=== PATIENT | male | born 1995 | race Caucasian/White ===

== ENCOUNTER → 2016-07-21 | Outpatient (CLI) | payer OTHER ==
--- NOTE | 2016-07-21 15:47 | MR ---
EXAMINATION TYPE: MR knee RT wo con DATE OF EXAM: 07/21/2016 COMPARISON: NONE HISTORY: Rt. knee pain TECHNIQUE: Multiplanar, multisequence imaging of the right knee is performed without IV contrast. FINDINGS: MEDIAL MENISCUS: Intrasubstance signal within the posterior horn and body medial meniscus suspicious for a subtle tear. LATERAL MENISCUS: Anterior and posterior horns are intact without tear. CRUCIATE LIGAMENTS: The anterior and posterior cruciate ligaments are intact and unremarkable. COLLATERAL LIGAMENTS: The medial collateral ligament and lateral collateral ligament complex are inta ct and unremarkable. EXTENSOR MECHANISM: Visualized quadriceps and patellar tendons are intact. EFFUSION: No significant suprapatellar joint effusion. POPLITEAL CYST: No popliteal/mejia cyst. TRICOMPARTMENT SPACES: Joint spaces are preserved and cartilage is maintained. BONE MARROW SIGNAL: No focal abnormal marrow signal is appreciated. IMPRESSION: Findings are suspicious for subtle tear posterior horn and body medial meniscus.
== END | disposition home or self-care (01) ==
LOC: RADMRIMAIN 07:11
PROVIDERS: ATTEND Physician Assistant Medical
DX: M23.91 Unspecified internal derangement of right knee (principal); S83.91XA Sprain of unspecified site of right knee, initial encounter

== ENCOUNTER 2016-09-04 06:58 | Day surgery (SDC) | payer OTHER ==
--- NOTE | 2016-09-03 12:05 | HP ---
CHIEF COMPLAINT: Right knee pain. HISTORY OF PRESENT ILLNESS: The patient is a 21-year-old [employer] employee who presents after injuring his right knee at work on 06/05/2016. He stepped out of a van and twisted his knee. He has had pain, swelling, and giving way every since. He has tried medications and rest, without significant relief. PAST MEDICAL HISTORY: Negative. PAST SURGICAL HISTORY: Significant for premature right knee arthroscopy. CURRENT MEDICATIONS: Ativan He denies drug allergies. FAMILY HISTORY: Significant for heart disease. SOCIAL HISTORY: Significant for 1/4 pack per day tobacco use. Sixteen point review of systems, otherwise, reviewed and is noncontributory. On examination, the patient is approximately 6 feet 2 inches, 270 pounds of endomorphic habitus. HEENT exam is nonfocal. Neck is supple. He has painless passive motion of the right hip. Straight leg raise is negative. Activity motion right knee minus 4 to 120 degrees of flexion. He is tender about the medial joint line and medial patellar facet. He has a mild effusion. Collaterals are stable. Carlotta's negative. Lucas's elicits medial and lateral pain. His distal neurovascular exam appears intact in the right lower extremity. MRI report for the right knee from 07/21/2016 shows increased signal involving the posterior horn of the medial meniscus. IMPRESSION: Right knee internal derangement with possible medial meniscal tear/ synovitis/possible patellar chondral injury. RECOMMENDATIONS: I talked with the patient at length regarding his treatment options. At this point he is having persistent pain and mechanical symptoms despite adequate attempts at rehabilitation and rest. After a thorough discussion, he opts to proceed with surgery. We will plan to proceed with arthroscopic evaluation with possible partial medial meniscectomy in addition to possible patellar chondroplasty and partial synovectomy. Risks and benefits were discussed at length in layman's terms. We will likely perform that as an outpatient procedure. YANI
[~2016-09-04 06:58] MED LIST: DEXAMETHASONE SOD PHOSPHATE 10 MG/ML 1 ML VIAL IV ONE; LACTATED RINGERS 1,000 ML IV SCH; SCOPOLAMINE 1.5MG/72HR PATCH TRANSDERM ONE; ceFAZolin 3 GM in SODIUM CHLORIDE 0.9% 100 ML IVPB ONE
[2016-09-04] MEDS ORDERED: ONDANSETRON 4 MG/2 ML VIAL IVP STA (07:18)
[2016-09-04] MEDS ORDERED: LIDOCAINE 1% 20 ML VIAL (10MG/ML) FOR IV START INTRADERMA ONE (07:44)
[2016-09-04] MEDS ORDERED: LIDOCAINE 1% INJ 10MG/ML (20 ML MDV) ONE (07:54)
[2016-09-04] MEDS ORDERED: SUCCINYLCHOLINE CHLORIDE VIAL 200 MG/10 ML VIAL IV ONE (07:54)
[2016-09-04] MEDS ORDERED: fentaNYL (PF) 50 MCG/ML 2 ML AMP ONE (07:54)
[2016-09-04] MEDS ORDERED: MIDAZOLAM 2 MG/2 ML VIAL ONE (07:54)
[2016-09-04] MEDS ORDERED: KETOROLAC 30 MG/ML 1 ML VIAL ONE (07:54)
[2016-09-04] MEDS ORDERED: PROPOFOL 10 MG/ML 20 ML VIAL IV ONE (07:54)
[2016-09-04] MEDS ORDERED: EPINEPHrine (PF) 1 ML in SODIUM CHLORIDE 0.9% IRRIGATIO 3,000 ML IRRIGATION ONE ×4 (08:14)
--- NOTE | 2016-09-04 08:48 | P.OP ---
Date of Procedure: 09/04/16 Preoperative Diagnosis: Right knee internal derangement Postoperative Diagnosis: Right knee grade 2-3 chondral injury lateral posterior medial femoral condyle, grade 2 chondral injury lateral patella facet, reactive synovitis of the medial and patellofemoral compartments. Procedure(s) Performed: Right knee arthroscopic medial femoral chondrectomy/patellar chondroplasty/ partial synovectomy of the medial and patellofemoral compartments Implants: Anesthesia: GETA Surgeon: Richmond Benitez Estimated Blood Loss (ml): 10 Pathology: none sent Condition: stable Disposition: PACU Indications for Procedure: The patient's a 21-year-old male who presents after injuring himself at work recently with persistent pain and mechanical symptoms. A discussion of the risks and benefits of operative intervention versus continued conservative measures was made with the patient. He opted to proceed with surgery. Operative risks to include infection, neurovascular injury, development of blood clots, possible incomplete resolution of symptoms, possible worsening symptoms and need for subsequent procedures was discussed. Informed consent was obtained. Operative Findings: As below Description of Procedure: The patient was brought to the operating room, and after induction of general anesthesia examined the right knee. Collaterals were stable, Carlotta was negative, and posterior drawer was negative. The right lower extremity was prepped and draped in a normal fashion. A superior lateral portal was made through a 3 mm skin incision superior and lateral to the patella. This was used for outflow. A lateral portal was made through a 5 mm vertical skin incision lateral to the patella tendon above the joint line. Diagnostic arthroscopy was performed. A medial portal was made through a similar incision medial to the patella tendon above the joint line. On inspection of the medial compartment, he is noted have a grade 2-3 chondral injury involving the posterior lateral portion of the medial femoral condyle with a loose chondral flap. This measured 5 x 6 mm. This was debrided back to stable base with a motorized shaver. The posterior medial meniscus appeared be stable and intact. Reactive synovitis involving the anterior medial compartment was debrided with a motorized shaver. On inspection of the notch, the anterior cruciate ligament appeared be intact. On inspection lateral compartment no significant meniscal or articular cartilage pathology was noted. On inspection of the patellofemoral articulation, there was reactive synovitis to was debrided with a motorized shaver. A grade 2 chondral injury involving the lateral patella facet was noted. A 3 x 3 mm loose chondral flap was debrided back to stable base with a motorized shaver. The gutters were clear debris. The knee was then thoroughly irrigated. The portals were closed with Steri-Strips. A sterile dressing was applied in addition to a compression portion stocking. The patient was awoken from general anesthesia and transferred to recovery room in good condition. Blood loss was estimated at 10 mL. No complications were incurred.
[2016-09-04 08:54] VITALS: TEMP 98
[2016-09-04] MEDS: HYDROmorphone 1 MG/ML 1 ML SYRINGE IVP PRN ×2 (09:07→09:15)
[2016-09-04 09:53] VITALS: RESP 16
[2016-09-04] MEDS ORDERED: HYDROcodone/APAP 7.5-325MG 1 EACH TAB PO ONE (10:10)
[2016-09-04 10:47] VITALS: BP 130/63; PULSE 74
== END 2016-09-04 11:31 | disposition home or self-care (01) ==
LOC: OR 06:58
PROVIDERS: ATTEND Orthopaedic Surgery
DX: M65.9 Synovitis and tenosynovitis, unspecified (principal); S89.91XA Unspecified injury of right lower leg, initial encounter; F41.9 Anxiety disorder, unspecified; F17.200 Nicotine dependence, unspecified, uncomplicated; Z79.899 Other long term (current) drug therapy; X58.XXXA Exposure to other specified factors, initial encounter; Y92.89 Other specified places as the place of occurrence of the external cause
CPT/HCPCS: 29876; J2250; J0330; J1100; J0690; J2405; J0171; J2001; J3010; J1885; J1170; J2704

== ENCOUNTER → 2016-10-20 | Outpatient (CLI) | payer OTHER ==
--- NOTE | 2016-10-20 10:14 | USB ---
Reason for exam: clinical finding. Indicated problem(s): palpable abnormality in the left breast. Physical Findings: Nurse Summary: 1.5cm movable, no discharge noted (nurse dw). US Breast LT Left breast ultrasound includes all four quadrants, the retroareolar region and axilla. Finding demonstrates a 2.0 x 1.4 x 2.6cm irregular, solid, hypoechoic lesion at the posterior nipple. These results were verbally communicated with the patient and result sheet given to the patient on 10/20/16. ASSESSMENT: Incomplete: need additional imaging evaluation, BI-RAD 0 RECOMMENDATION: Follow-up diagnostic mammogram of both breasts.
--- NOTE | 2016-10-20 10:17 | MM ---
Reason for exam: additional evaluation requested from abnormal screening. MG Diagnostic Mammo w CAD KATI Bilateral CC and MLO view(s) were taken. There are scattered fibroglandular densities. Asymmetric breast tissue subareolar level flame shaped in the right breast. Bilateral gynocomastia greater in the left breast. These results were verbally communicated with the patient and result sheet given to the patient on 10/20/16. ASSESSMENT: Probably benign, BI-RAD 3 RECOMMENDATION: Consider Surgical consultation of the left breast. Manage on a clinical basis . JOSIASD
== END | disposition home or self-care (01) ==
LOC: RADUSWWP 08:54
PROVIDERS: ATTEND Family Medicine
DX: N63 Unspecified lump in breast (principal); R92.8 Other abnormal and inconclusive findings on diagnostic imaging of breast
CPT/HCPCS: 76641; G0204

== ENCOUNTER 2018-01-04 03:54 | Emergency (ER) | payer OTHER ==
[2018-01-04 03:59] VITALS: RESP 18; TEMP 98.4
--- NOTE | 2018-01-04 05:23 | XR ---
EXAM: XR Chest, 2 Views CLINICAL HISTORY: ITS.REASON XR Reason: Pain TECHNIQUE: Frontal and lateral views of the chest. COMPARISON: No relevant prior studies available. FINDINGS: Lungs: No dense consolidation. Subtle increased opacity in the medial right lower lobe which may reflect early infiltrate versus atelectasis. Pleural space: No pleural effusion. No pneumothorax. Heart: Unremarkable. No cardiomegaly. Mediastinum: Unremarkable. Slight fullness of the left hilum likely vasculature. Bones/joints: Unremarkable. IMPRESSION: No dense consolidation or effusion. Possible early infiltrate versus atelectasis in the medial right lower lobe.
[2018-01-04] MEDS ORDERED: predniSONE 20 MG TAB PO STA (05:29)
[2018-01-04] MEDS ORDERED: ALBUTEROL NEBULIZED 2.5 MG/3 ML INHALATION STA (05:29)
[2018-01-04] MEDS ORDERED: AZITHROMYCIN 500 MG TAB PO STA (05:30)
--- NOTE | 2018-01-04 06:28 | ED ---
URI HPI - General Chief Complaint: Upper Respiratory Infection Stated Complaint: SOB Time Seen by Provider: 01/04/18 05:07 Source: patient Mode of arrival: ambulatory Limitations: no limitations - History of Present Illness MD Complaint: cough, nasal congestion, other (Shortness of breath) Onset/Timin -: days(s) Severity: moderate Consistency: constant Improves With: nothing Worsens With: nothing Associated Symptoms: nasal congestion, cough, shortness of breath Treatments Prior to Arrival: none - Related Data Home Medications Medication Instructions Recorded Confirmed Escitalopram [Lexapro] 20 mg PO QAM 08/28/16 08/28/16 LORazepam [Ativan] 4 mg PO QAM 08/28/16 08/28/16 Escitalopram Oxalate [Lexapro] 20 mg PO DAILY 06/21/17 06/21/17 LORazepam [Ativan] 1 mg PO QID 06/21/17 06/21/17 Previous Rx's Medication Instructions Recorded HYDROcodone/APAP 7.5-325MG [[place] 1 each PO Q6HR PRN #30 tab 09/04/16 7.5] Nicotine 14Mg/24Hr Patch [Habitrol] 1 patch TRANSDERM DAILY #10 patch 06/23/17 Albuterol Inhaler [Ventolin Hfa 1 - 2 puff INHALATION Q6HR PRN #1 01/04/18 Inhaler] inhaler Azithromycin [Zithromax Z-pack] 250 mg PO DIRECTED #6 tab 01/04/18 predniSONE 60 mg PO DAILY #30 tab 01/04/18 Allergies Allergy/AdvReac Type Severity Reaction Status Date / Time No Known Allergies Allergy Verified 09/04/16 07:18 Review of Systems ROS Statement: Those systems with pertinent positive or pertinent negative responses have been documented in the HPI. ROS Other: All systems not noted in ROS Statement are negative. Constitutional: Denies: fever, chills, weakness ENT: Reports: throat pain, congestion Respiratory: Reports: cough, dyspnea. Denies: wheezes, hemoptysis Cardiovascular: Denies: chest pain, palpitations Gastrointestinal: Denies: abdominal pain, nausea, vomiting Musculoskeletal: Denies: back pain Skin: Denies: rash Neurological: Denies: headache, weakness, numbness Past Medical History Past Medical History: No Reported History History of Any Multi-Drug Resistant Organisms: None Reported Past Surgical History: Orthopedic Surgery Additional Past Surgical History / Comment(s): bilateral knee surgery Past Anesthesia/Blood Transfusion Reactions: Motion Sickness, No Reported Reaction, Postoperative Nausea & Vomiting (PONV) Past Psychological History: Anxiety, No Psychological Hx Reported Smoking Status: Current every day smoker Past Alcohol Use History: Occasional, Rare Past Drug Use History: Marijuana, None Reported - Past Family History Mother Family Medical History: Cancer Father Family Medical History: No Reported History General Exam Limitations: no limitations General appearance: alert, in no apparent distress Head exam: Present: atraumatic, normocephalic Eye exam: Present: normal appearance. Absent: scleral icterus, conjunctival injection ENT exam: Present: normal oropharynx Neck exam: Present: normal inspection. Absent: full ROM Respiratory exam: Present: normal lung sounds bilaterally. Absent: respiratory distress, wheezes, rales, rhonchi, stridor Cardiovascular Exam: Present: regular rate, normal rhythm, normal heart sounds. Absent: systolic murmur, diastolic murmur, rubs, gallop GI/Abdominal exam: Present: soft. Absent: tenderness, guarding, rebound Extremities exam: Present: normal inspection, normal capillary refill. Absent: pedal edema, calf tenderness Back exam: Present: normal inspection. Absent: CVA tenderness (R), CVA tenderness (L) Skin exam: Present: warm, dry, intact, normal color. Absent: rash Course Vital Signs 01/04/18 01/04/18 01/04/18 03:55 05:42 05:49 Temperature 98.4 F Pulse Rate 104 H 76 78 Respiratory 18 18 18 Rate Blood Pressure 112/75 134/89 O2 Sat by Pulse 98 98 Oximetry 01/04/18 01/04/18 05:55 06:32 Temperature 98.4 F Pulse Rate 80 95 Respiratory 18 18 Rate Blood Pressure 142/61 O2 Sat by Pulse 96 Oximetry Disposition Clinical Impression: Bronchitis, Pneumonia Disposition: HOME SELF-CARE Condition: Good Instructions: Pneumonia (ED) Prescriptions: Albuterol Inhaler [Ventolin Hfa Inhaler] 1 - 2 puff INHALATION Q6HR PRN #1 inhaler PRN Reason: Wheezing Azithromycin [Zithromax Z-pack] 250 mg PO DIRECTED #6 tab predniSONE 60 mg PO DAILY #30 tab Is patient prescribed a controlled substance at d/c from ED?: No Referrals: Vito Smith MD [Primary Care Provider] - 1-2 days
[2018-01-04 06:33] VITALS: BP 142/61; PULSE 95
== END 2018-01-04 06:34 | disposition home or self-care (01) ==
LOC: EC 03:54
DX: J18.9 Pneumonia, unspecified organism (principal); J40 Bronchitis, not specified as acute or chronic; F41.9 Anxiety disorder, unspecified; F17.200 Nicotine dependence, unspecified, uncomplicated; Z79.899 Other long term (current) drug therapy
CPT/HCPCS: 94640; 71046; 99285; J7512

== ENCOUNTER 2018-01-12 15:56 | Emergency (ER) | payer OTHER ==
[2018-01-12] MEDS ORDERED: IPRATROPIUM-ALBUTEROL 3 ML NEB INHALATION STA (16:12)
[2018-01-12 16:29] VITALS: RESP 16
--- NOTE | 2018-01-12 16:33 | XR ---
EXAMINATION TYPE: XR chest 2V DATE OF EXAM: 01/12/2018 COMPARISON: 01/04/2018 HISTORY: 22-year-old male with cough and congestion TECHNIQUE: PA and lateral views FINDINGS: The cardiomediastinal silhouette, aorta, and pulmonary vasculature are within normal limits. Some str pacheco atelectasis at the left base. Otherwise, lungs and pleural spaces are clear. IMPRESSION: No acute cardiopulmonary process.
--- NOTE | 2018-01-12 16:37 | ED ---
General Adult HPI - General Chief complaint: Shortness of Breath Stated complaint: JOEL Time Seen by Provider: 01/12/18 16:04 Source: patient, RN notes reviewed, old records reviewed Mode of arrival: ambulatory Limitations: no limitations - History of Present Illness Initial comments: Patient 22-year-old male with no significant past medical history, presented to the emergency room today with chief complaint of cough congestion over the last 2 weeks. He does admit that he was seen here in the emergency room diagnosed with pneumonia started on antibiotics. He states he follow-up this family doctor a few days afterwards and was prescribed a second antibiotic. He states he is still finishing the second course of antibiotics at this time. He states he went back to work 2 days ago and was having increased cough congestion. He does admit that he has pain when he coughs. States he still feeling congested and having sputum production. Patient states his symptoms seem to be increasing instead of getting better. He denies any other complaints or symptoms at this time. Patient denies any recent fever, shortness of breath, chest pain, back pain, abdominal pain, nausea or vomiting, numbness or tingling , headaches or visual changes, or any other complaints. - Related Data Home Medications Medication Instructions Recorded Confirmed Escitalopram Oxalate [Lexapro] 20 mg PO DAILY 06/21/17 01/12/18 Albuterol Sulfate [Proair Hfa] 1 - 2 puff INHALATION RT-QID PRN 01/12/18 Cefuroxime Axetil [Ceftin] 500 mg PO BID 01/12/18 01/12/18 clonazePAM [KlonoPIN] 1 mg PO TID PRN 01/12/18 01/12/18 hydrOXYzine HCL [Atarax] 25 mg PO HS PRN 01/12/18 01/12/18 Previous Rx's Medication Instructions Recorded Albuterol Inhaler [Ventolin Hfa 1 - 2 puff INHALATION Q4-6H PRN #1 01/12/18 Inhaler] inhaler Benzonatate [Tessalon Perles] 100 mg PO TID PRN #20 capsule 01/12/18 predniSONE 50 mg PO DAILY #5 tab 01/12/18 Allergies Allergy/AdvReac Type Severity Reaction Status Date / Time No Known Allergies Allergy Verified 01/12/18 16:37 Review of Systems ROS Statement: Those systems with pertinent positive or pertinent negative responses have been documented in the HPI. ROS Other: All systems not noted in ROS Statement are negative. Past Medical History Past Medical History: No Reported History History of Any Multi-Drug Resistant Organisms: None Reported Past Surgical History: Orthopedic Surgery Additional Past Surgical History / Comment(s): bilateral knee surgery Past Anesthesia/Blood Transfusion Reactions: Motion Sickness, No Reported Reaction, Postoperative Nausea & Vomiting (PONV) Past Psychological History: Anxiety, No Psychological Hx Reported Smoking Status: Current every day smoker Past Alcohol Use History: Occasional, Rare Past Drug Use History: Marijuana - Past Family History Mother Family Medical History: Cancer Father Family Medical History: No Reported History General Exam - General Exam Comments Initial Comments: General: The patient is awake and alert, in no distress, and does not appear acutely ill. Eye: There is normal conjunctiva bilaterally. No signs of icterus. Ears, nose, mouth and throat: There are moist mucous membranes and no oral lesions. Neck: The neck is supple, there is no tenderness or JVD. Cardiovascular: There is a regular rate and rhythm. No murmur, rub or gallop is appreciated. Respiratory: Bilateral expiratory wheeze. respirations are non-labored, breath sounds are equal. No stridor, rales, or rhonchi. Musculoskeletal: Normal ROM, no tenderness. Strength 5/5. Sensation intact. Pulses equal bilaterally 2+. Neurological: A&O x 3. CN II-XII intact, There are no obvious motor or sensory deficits. Coordination appears grossly intact. Speech is normal. Skin: Skin is warm and dry and no rashes or lesions are noted. Psychiatric: Cooperative, appropriate mood & affect, normal judgment. Limitations: no limitations Course Vital Signs 01/12/18 01/12/18 01/12/18 15:57 16:26 16:33 Temperature 98.1 F Pulse Rate 84 72 82 Respiratory 20 16 16 Rate Blood Pressure 124/74 O2 Sat by Pulse 98 Oximetry Medical Decision Making - Medical Decision Making Patient reexamined at this time shows no signs of distress. Breathing improved after breathing treatment. Chest x-ray reviewed is negative for any sign of pneumonia. No other acute abnormality. Results were discussed with the patient. At this time is doing well. Discharged home given albuterol inhaler, steroids, and cough medication.. Following his family doctor over the next 2-4 days return here to the emergency room symptoms increase or worsen. Disposition Clinical Impression: Bronchitis Disposition: HOME SELF-CARE Condition: Good Instructions: Acute Bronchitis (ED) Additional Instructions: Please use medication as discussed. Please follow-up with family doctor in the next 2 days of symptoms have not improved. Please return to emergency room if the symptoms increase or worsen or for any other concerns. Prescriptions: Albuterol Inhaler [Ventolin Hfa Inhaler] 1 - 2 puff INHALATION Q4-6H PRN #1 inhaler PRN Reason: Cough Benzonatate [Tessalon Perles] 100 mg PO TID PRN #20 capsule PRN Reason: Cough predniSONE 50 mg PO DAILY #5 tab Is patient prescribed a controlled substance at d/c from ED?: No Referrals: Vito Smith MD [Primary Care Provider] - 1-2 days Time of Disposition: 17:12
[2018-01-12 17:19] VITALS: BP 158/70; PULSE 78; TEMP 97.9
== END 2018-01-12 17:17 | disposition home or self-care (01) ==
LOC: EC 15:56
DX: J40 Bronchitis, not specified as acute or chronic (principal); F17.200 Nicotine dependence, unspecified, uncomplicated; Z79.899 Other long term (current) drug therapy
CPT/HCPCS: 71046; 94640; 99285

== ENCOUNTER 2019-03-12 11:29 | Emergency (ER) | payer OTHER, BC ==
[2019-03-12 11:42] VITALS: TEMP 98.5
[2019-03-12] MEDS ORDERED: MORPHINE SULFATE 4 MG/ML SYRINGE IM STA (12:29)
[2019-03-12] MEDS ORDERED: LIDOCAINE URO-JET JELLY 2% 5 ML KIT URETHRAL ONE (12:30)
[2019-03-12 13:55] VITALS: RESP 20
[2019-03-12 13:58] LABS: Basophils % (A) 1 %; Eosinophils # (A) 0.1 k/uL (0-0.7); Eosinophils % (A) 2 %; HCT 46.5 % (39.0-53.0); HGB 15.3 gm/dL (13.0-17.5); Lymphocytes # (A) 1.7 k/uL (1.0-4.8); Lymphocytes % (A) 36 %; MCHC 32.9 g/dL (31.0-37.0); MCV 88.3 fL (80.0-100.0); Mean Platelet Volume 6.9; Monocytes # (A) 0.4 k/uL (0-1.0); Monocytes % (A) 8 %; Neutrophils # (A) 2.4 k/uL (1.3-7.7); Neutrophils % (A) 51 %; Platelet Count 259 k/uL (150-450); RBC 5.27 m/uL (4.30-5.90); RDW 12.6 % (11.5-15.5); WBC 4.7 k/uL (3.8-10.6)
[2019-03-12 13:59] LABS: Appearance,Urine Clear (Clear); Bilirubin,Urine Negative (Negative); Blood,Urine Negative (Negative); Color,Urine Yellow; Glucose,Urine (UA) Negative (Negative); Ketones,Urine Negative (Negative); Leukocyte Esterase,Urine Negative (Negative); Nitrite,Urine Negative (Negative); PH, Urine 5.5 (5.0-8.0); Protein,Urine Negative (Negative); Specific Gravity,Urine 1.013 (1.001-1.035); Urobilinogen,Urine <2.0 mg/dL (<2.0)
[2019-03-12 14:05] LABS: ALT 31 U/L (4-49); AST 28 U/L (17-59); African American GFR (CKD) >90 (>60 ml/min/1.73 sqM); Albumin 4.5 g/dL (3.5-5.0); Alkaline Phosphatase 52 U/L (38-126); Anion Gap 9 mmol/L; Blood Urea Nitrogen 7 mg/dL (9-20); Calcium 9.2 mg/dL (8.4-10.2); Carbon Dioxide 25 mmol/L (22-30); Chloride 107 mmol/L (98-107); Glucose 93 mg/dL (74-99); Non-African American GFR(CKD) >90 (>60 ml/min/1.73 sqM); Potassium 4.1 mmol/L (3.5-5.1); Sodium 141 mmol/L (137-145); Total Bilirubin 0.5 mg/dL (0.2-1.3); Total Protein 7.4 g/dL (6.3-8.2)
--- NOTE | 2019-03-12 14:09 | US ---
EXAMINATION TYPE: US kidneys/renal and bladder DATE OF EXAM: 03/12/2019 COMPARISON: NONE CLINICAL HISTORY: suprapubic pain, decreased urine output. EXAM MEASUREMENTS: Right Kidney: 13.0 x 4.5 x 5.2 cm Left Kidney: 12.7 x 5.9 x 6.4 cm Patient of large body habitus. Right Kidney: Within normal limits Left Kidney: Within normal limits Bladder: marrero There is no evidence for hydronephrosis at this point in time. No nephrolithiasis is seen. No marisol s are identified. Urinary bladder is catheterized and decompressed and therefore not seen. IMPRESSION: No hydronephrosis or nephrolithiasis. Nonvisualization of the urinary bladder secondary to catheteriz ation.
--- NOTE | 2019-03-12 14:31 | XR ---
EXAMINATION TYPE: XR KUB DATE OF EXAM: 03/12/2019 2:22 PM CLINICAL HISTORY: Difficulty urinating TECHNIQUE: Single upright image of the abdomen is obtained. COMPARISON: None. FINDINGS: Lung bases are well aerated. Mild to moderate degree colonic fecal stasis. No dilated large or small bowel. No suspicious calcifications in the abdomen or pelvis. Osseous structures appear int act. IMPRESSION: Nonobstructive bowel gas pattern.
[2019-03-12] MEDS ORDERED: MORPHINE SULFATE 4 MG/ML SYRINGE IVP STA (15:54)
--- NOTE | 2019-03-12 15:58 | ED ---
General Adult HPI - General Chief complaint: Recheck/Abnormal Lab/Rx Stated complaint: urethra blockage Time Seen by Provider: 03/12/19 11:35 Source: patient Mode of arrival: ambulatory Limitations: no limitations - History of Present Illness Initial comments: The patient is a 23-year-old male with past history of urethral stricture who presents to the emergency room with reported urinary retention. Patient states that his urethral stricture was when he was child and required medial dilation. States that he has been urinating without difficulty for years. Yesterday he felt as if he was having urinary retention. States that he really had to strain to some restaurant. He wanted to [facility] where they attempted to place a Esqueda. They were unsuccessful and therefore they straight cathed the patient. They completed laboratory studies and urinalysis. It was reported as negative. The patient was sent home with prescriptions for Keflex and [place]. States that he has not taken any of the medications. Today he had recurrences difficulty voiding. States that he has a suprapubic cramping pain with the sensation that he has to frequently go. He has urinated twice. Denies hematuria. Also admits burning discomfort with urination. Denies any penial discharge. No concern for sexy transmitted infections. Denies any scrotal pain or swelling. The patient does admits that he has not had a bowel movement today. Denies black or tarry stools. No fevers or chills. Denies any back or flank pain. There are no alleviating, precipitating or modifying factors - Related Data Home Medications Medication Instructions Recorded Confirmed Escitalopram Oxalate [Lexapro] 20 mg PO DAILY 06/21/17 01/12/18 Albuterol Sulfate [Proair Hfa] 1 - 2 puff INHALATION RT-QID PRN 01/12/18 01/12/18 Cefuroxime Axetil [Ceftin] 500 mg PO BID 01/12/18 01/12/18 clonazePAM [KlonoPIN] 1 mg PO TID PRN 01/12/18 01/12/18 hydrOXYzine HCL [Atarax] 25 mg PO HS PRN 01/12/18 01/12/18 Previous Rx's Medication Instructions Recorded Albuterol Inhaler [Ventolin Hfa 1 - 2 puff INHALATION Q4-6H PRN #1 01/12/18 Inhaler] inhaler Benzonatate [Tessalon Perles] 100 mg PO TID PRN #20 capsule 01/12/18 predniSONE 50 mg PO DAILY #5 tab 01/12/18 Allergies Allergy/AdvReac Type Severity Reaction Status Date / Time No Known Allergies Allergy Verified 03/12/19 11:35 Review of Systems ROS Statement: Those systems with pertinent positive or pertinent negative responses have been documented in the HPI. ROS Other: All systems not noted in ROS Statement are negative. Past Medical History Past Medical History: No Reported History History of Any Multi-Drug Resistant Organisms: None Reported Past Surgical History: Orthopedic Surgery Additional Past Surgical History / Comment(s): bilateral knee surgery Past Anesthesia/Blood Transfusion Reactions: Motion Sickness, No Reported Reaction, Postoperative Nausea & Vomiting (PONV) Past Psychological History: Anxiety Smoking Status: Current every day smoker Past Alcohol Use History: Occasional, Rare Past Drug Use History: None Reported - Past Family History Mother Family Medical History: Cancer Father Family Medical History: No Reported History General Exam Limitations: no limitations General appearance: alert, in no apparent distress, anxious Head exam: Present: atraumatic, normocephalic, normal inspection Eye exam: Present: normal appearance, PERRL, EOMI. Absent: scleral icterus, conjunctival injection, periorbital swelling ENT exam: Present: normal exam, mucous membranes moist Neck exam: Present: normal inspection. Absent: tenderness, meningismus, lymphadenopathy Respiratory exam: Present: normal lung sounds bilaterally. Absent: respiratory distress, wheezes, rales, rhonchi, stridor Cardiovascular Exam: Present: regular rate, normal rhythm, normal heart sounds. Absent: systolic murmur, diastolic murmur, rubs, gallop, clicks GI/Abdominal exam: Present: soft, normal bowel sounds. Absent: distended, tenderness, guarding, rebound, rigid exam: Present: normal inspection, circumcision, other (small penile meatus). Absent: testicular tenderness, urethral discharge, scrotal swelling, vertical testicular lie Extremities exam: Present: normal inspection, full ROM, normal capillary refill. Absent: tenderness, pedal edema, joint swelling, calf tenderness Back exam: Present: normal inspection Neurological exam: Present: alert, oriented X3, CN II-XII intact Psychiatric exam: Present: normal affect, normal mood Skin exam: Present: warm, dry, intact, normal color. Absent: rash Course Vital Signs 03/12/19 03/12/19 03/12/19 11:35 11:42 12:42 Temperature 98.5 F Pulse Rate 86 70 Respiratory 18 20 20 Rate Blood Pressure 110/73 118/78 O2 Sat by Pulse 96 98 Oximetry 03/12/19 03/12/19 03/12/19 13:42 14:00 15:00 Temperature Pulse Rate 62 62 58 L Respiratory 20 20 20 Rate Blood Pressure 121/79 115/72 128/78 O2 Sat by Pulse 98 98 98 Oximetry 03/12/19 16:12 Temperature Pulse Rate 62 Respiratory 20 Rate Blood Pressure 129/71 O2 Sat by Pulse 99 Oximetry Medical Decision Making - Medical Decision Making Upon arrival the patient was placed in room 19. Her history and physical exam was performed. As the patient is reporting continued urinary discomfort after he was straight cathed yesterday I did recommend placement of Esqueda. Patient did agree to this. He does have a very small urethral opening. Because of this the patient's had a 12-Turkish Esqueda placed without difficulty. We did receive urine output. I did repeat laboratory studies and a urinalysis. It CBC, CMP and urinalysis are unremarkable. Bladder ultrasound was performed which demonstrates compression of the bladder around fully. There is no hydronephrosis. I reevaluated the patient and he has improvement in his pain with light overjet and morphine initiation. He is requesting a second dose of morphine prior to hospital discharge. He does have a prescription for [place] at home. Informed him that he should take this medication as needed for pain control. He is given follow-up information for the urology office. Instructed him to call for Esqueda removal and possible meatal dilation. If he has any new or worsening symptoms he should return to the emergency room. Patient was in agreement treatment plan and discharged home stable condition - Lab Data Result diagrams: 03/12/19 13:45 03/12/19 13:45 Lab Results 03/12/19 03/12/19 03/12/19 Range/Units 13:45 13:45 13:45 WBC 4.7 (3.8-10.6) k/uL RBC 5.27 (4.30-5.90) m/uL Hgb 15.3 (13.0-17.5) gm/dL Hct 46.5 (39.0-53.0) % MCV 88.3 (80.0-100.0) fL MCH 29.0 (25.0-35.0) pg MCHC 32.9 (31.0-37.0) g/dL RDW 12.6 (11.5-15.5) % Plt Count 259 (150-450) k/uL Neutrophils % 51 % Lymphocytes % 36 % Monocytes % 8 % Eosinophils % 2 % Basophils % 1 % Neutrophils # 2.4 (1.3-7.7) k/uL Lymphocytes # 1.7 (1.0-4.8) k/uL Monocytes # 0.4 (0-1.0) k/uL Eosinophils # 0.1 (0-0.7) k/uL Basophils # 0.0 (0-0.2) k/uL Sodium 141 (137-145) mmol/L Potassium 4.1 (3.5-5.1) mmol/L Chloride 107 (98-107) mmol/L Carbon Dioxide 25 (22-30) mmol/L Anion Gap 9 mmol/L BUN 7 L (9-20) mg/dL Creatinine 0.77 (0.66-1.25) mg/dL Est GFR (CKD-EPI)AfAm >90 (>60 ml/min/1.73 sqM) Est GFR (CKD-EPI)NonAf >90 (>60 ml/min/1.73 sqM) Glucose 93 (74-99) mg/dL Calcium 9.2 (8.4-10.2) mg/dL Total Bilirubin 0.5 (0.2-1.3) mg/dL AST 28 (17-59) U/L ALT 31 (4-49) U/L Alkaline Phosphatase 52 (38-126) U/L Total Protein 7.4 (6.3-8.2) g/dL Albumin 4.5 (3.5-5.0) g/dL Urine Color Yellow Urine Appearance Clear (Clear) Urine pH 5.5 (5.0-8.0) Ur Specific [place] 1.013 (1.001-1.035) Urine Protein Negative (Negative) Urine Glucose (UA) Negative (Negative) Urine Ketones Negative (Negative) Urine Blood Negative (Negative) Urine Nitrite Negative (Negative) Urine Bilirubin Negative (Negative) Urine Urobilinogen <2.0 (<2.0) mg/dL Ur Leukocyte Esterase Negative (Negative) Disposition Clinical Impression: Urethral stricture Disposition: HOME SELF-CARE Condition: Stable Additional Instructions: Please follow-up with the urologist this week. Call tomorrow for an appointment. Take MiraLAX while you are taking the [place]. Return to the emergency room for any new worsening symptoms Is patient prescribed a controlled substance at d/c from ED?: No Referrals: Vito Smith MD [Primary Care Provider] - 1-2 days Vito Sánchez MD [STAFF PHYSICIAN] - 1-2 days Time of Disposition: 15:57
[2019-03-12 16:14] VITALS: BP 129/71; PULSE 62
== END 2019-03-12 16:13 | disposition home or self-care (01) ==
LOC: EC 11:29
DX: N35.919 Unspecified urethral stricture, male, unspecified site (principal); F41.9 Anxiety disorder, unspecified; F17.200 Nicotine dependence, unspecified, uncomplicated; Z79.899 Other long term (current) drug therapy
CPT/HCPCS: 36415; 80053; 85025; 81003; 74018; 76770; 99284; 51702; 96374; 96372; J2270

== ENCOUNTER → 2019-06-23 | Outpatient (CLI) | payer BC, OTHER ==
--- NOTE | 2019-06-23 09:54 | MR ---
EXAMINATION TYPE: MR knee RT wo con DATE OF EXAM: 06/23/2019 COMPARISON: X-ray 06/22/2019, MRI 07/21/2016 HISTORY: Rt knee pain, S/P fall 1 week ago TECHNIQUE: Multiplanar, multisequence imaging of the right knee is performed without IV contrast. FINDINGS: There is a small amount of fluid in the suprapatellar bursa. Quadriceps and patellar tendon s intact. Patellar cartilage maintained. Minimal grade II chondromalacia along the medial patellar fa cet. Retinaculum intact. There is an area of bone marrow edema or contusion involving the posterior femoral lateral condyle me asuring 1.4 cm. No definite fracture line identified. Femoral cartilage maintained bilaterally no ost eochondral fragment. Anterior cruciate and posterior cruciate ligaments intact. Lateral collateral ligaments intact. There is abnormal attenuation surrounding the medial collateral ligament with ill-definition of the f ibers proximally compatible with a partial MCL tear. There is grade 3 signal in the posterior horn a nd body of the medial meniscus compatible with tear. Popliteal fossa demonstrates no sizable cyst. Popliteus tendon intact. IMPRESSION: 1. Diffuse edema surrounding the MCL with partial through thickness tear of the anterior fibers of th e proximal MCL. 2. Simple linear tear posterior horn medial meniscus. 3. There is a 1.4 cm bone contusion involving the posterior lateral femoral condyle with no definite fracture line or osteochondral fragment.
== END | disposition home or self-care (01) ==
LOC: RADMRIMAIN 08:54
PROVIDERS: ATTEND Orthopaedic Surgery
DX: S83.241A Other tear of medial meniscus, current injury, right knee, initial encounter (principal)

== ENCOUNTER → 2022-12-18 | Outpatient (CLI) | payer OTHER, BC ==
[2022-12-19 05:06] LABS: Urine Alcohol Negative (Negative); Urine Barbiturate Negative (Negative); Urine Cocaine Negative (Negative); Urine Methadone Negative (Negative); Urine Opiates Negative (Negative); Urine Phencyclidine Negative (Negative)
== END | disposition home or self-care (01) ==
LOC: LABWHC1 15:15
PROVIDERS: ATTEND Family Medicine
DX: F90.0 Attention-deficit hyperactivity disorder, predominantly inattentive type (principal)
CPT/HCPCS: 80306

== ENCOUNTER 2024-06-14 10:14 | Emergency (ER) | payer OTHER, BC ==
[2024-06-14 10:22] VITALS: RESP 16; TEMP 98.2
--- NOTE | 2024-06-14 10:51 | ED ---
General Adult HPI - General Chief complaint: GI Bleed Stated complaint: gi bleed Time Seen by Provider: 06/14/24 10:51 Source: patient, RN notes reviewed Mode of arrival: ambulatory Limitations: no limitations - History of Present Illness Initial comments: 29-year-old male presented the ER for evaluation of blood in stool. Patient has no reported past medical history. Patient states a couple of days ago he noticed a small amount of bright red blood in the toilet after having a bowel movement. He states today he noticed a large increase in the amount of blood that was in the toilet after having a bowel movement. He states that is also on toilet paper. He is not on blood thinners. He does state he has been mildly straining to have a bowel movements lately. Patient is concerned given the amount of blood he saw today. He denies a history of ulcerative colitis, Crohn's disease or diverticulitis. He denies any nausea, vomiting, abdominal pain,, urinary complaints. He denies any melena. Denies a history of hemorrhoids or anal fissures. There is no pain with defecation. - Related Data Home Medications Medication Instructions Recorded Confirmed Escitalopram Oxalate [Lexapro] 20 mg PO DAILY 06/21/17 01/12/18 Albuterol Sulfate [Proair Hfa] 1 - 2 puff INHALATION RT-QID PRN 01/12/18 01/12/18 cefuroxime axetiL [Ceftin] 500 mg PO BID 01/12/18 01/12/18 clonazePAM [KlonoPIN] 1 mg PO TID PRN 01/12/18 01/12/18 hydrOXYzine HCL [Atarax] 25 mg PO HS PRN 01/12/18 01/12/18 Previous Rx's Medication Instructions Recorded Albuterol Inhaler [Ventolin Hfa 1 - 2 puff INHALATION Q4-6H PRN #1 01/12/18 Inhaler] inhaler Benzonatate [Tessalon Perles] 100 mg PO TID PRN #20 capsule 01/12/18 predniSONE 50 mg PO DAILY #5 tab 01/12/18 Allergies Allergy/AdvReac Type Severity Reaction Status Date / Time No Known Allergies Allergy Verified 06/14/24 10:21 Review of Systems ROS Statement: Those systems with pertinent positive or pertinent negative responses have been documented in the HPI. ROS Other: All systems not noted in ROS Statement are negative. Past Medical History Past Medical History: No Reported History History of Any Multi-Drug Resistant Organisms: None Reported Past Surgical History: Orthopedic Surgery Additional Past Surgical History / Comment(s): bilateral knee surgery Past Anesthesia/Blood Transfusion Reactions: Motion Sickness, No Reported Reaction, Postoperative Nausea & Vomiting (PONV) Past Psychological History: Anxiety Past Alcohol Use History: Occasional, Rare Past Drug Use History: None Reported - Past Family History Mother Family Medical History: Cancer Father Family Medical History: No Reported History General Exam Limitations: no limitations General appearance: alert, in no apparent distress Respiratory exam: Present: normal lung sounds bilaterally. Absent: respiratory distress, wheezes, rales, rhonchi, stridor Cardiovascular Exam: Present: regular rate, normal rhythm, normal heart sounds. Absent: systolic murmur, diastolic murmur, rubs, gallop, clicks GI/Abdominal exam: Present: soft, normal bowel sounds. Absent: distended, tenderness, guarding, rebound, rigid Rectal exam: Present: normal inspection, normal rectal tone Neurological exam: Present: alert, oriented X3, CN II-XII intact Skin exam: Present: warm, dry, intact, normal color. Absent: rash Course Vital Signs 06/14/24 06/14/24 10:19 13:11 Temperature 98.2 F Pulse Rate 77 68 Respiratory 16 16 Rate Blood Pressure 132/86 131/76 O2 Sat by Pulse 99 98 Oximetry - Reevaluation(s) Reevaluation #1: Rectal exam chaperoned by Maribel SARMIENTO. Medical Decision Making - Medical Decision Making Was pt. sent in by a medical professional or institution (, PA, PROJECT GEOPHYSICIST, urgent care, hospital, or correction...) When possible be specific @ -No Did you speak to anyone other than the patient for history (EMS, parent, family, police, friend...)? What history was obtained from this source @ -Patient significant other, at bedside, aiding in HPI and past medical history. Did you review nursing and triage notes (agree or disagree)? Why? @ -I reviewed and agree with nursing and triage notes Were old charts reviewed (outside hosp., previous admission, EMS record, old EKG, old radiological studies, urgent care reports/EKG's, correction records)? Report findings @ -No old charts were reviewed Differential Diagnosis (chest pain, altered mental status, abdominal pain women, abdominal pain men, vaginal bleeding, weakness, fever, dyspnea, syncope, heada [place], dizziness, GI bleed, back pain, seizure, CVA, palpatations, mental health, musculoskeletal)? @ -Differential GI Bleed:Esophageal varices, aortoenteric fistula, [place], gastritis, peptic ulcer disease, diverticulosis, inflammatory bowel disease, hemorrhoids, fissure, colitis, malignancy, Meckel's diverticulum, this is not meant to be an all-inclusive list. EKG interpreted by me (3pts min.). @ -None done X-rays interpreted by me (1pt min.). @ -None done CT interpreted by me (1pt min.). @ -None done U/S interpreted by me (1pt. min.). @ -None done What testing was considered but not performed or refused? (CT, X-rays, U/S, labs)? Why? @ -Abdominal imaging considered but not performed as patient has a stable hemoglobin of 16. Stool occult negative. No focal abdominal tenderness, patient is agreeable. What meds were considered but not given or refused? Why? @ -None Did you discuss the management of the patient with other professionals (professionals i.e. , PA, PROJECT GEOPHYSICIST, lab, RT, psych nurse, aids social worker, collar padder blindstitch, teacher, business banking officer, major case detective)? Give summary @ -No Was smoking cessation discussed for >3mins.? @ -No Was critical care preformed (if so, how long)? @ -No Were there social determinants of health that impacted care today? How? (Homelessness, low income, unemployed, alcoholism, drug addiction, transportation, low edu. Level, literacy, decrease access to med. care, shelter, rehab)? @ -No Was there de-escalation of care discussed even if they declined (Discuss DNR or withdrawal of care, Hospice)? DNR status @ -No What co-morbidities impacted this encounter? (DM, HTN, Smoking, COPD, CAD, Cancer, CVA, ARF, Chemo, Hep., AIDS, mental health diagnosis, sleep apnea, morbid obesity)? @ -None Was patient admitted / discharged? Hospital course, mention meds given and route, prescriptions, significant lab abnormalities, going to OR and other pertinent info. @ -Discharge. 29-year-old male presented the ER for evaluation of bright red blood per stool. Upon arrival vital signs within acceptable limits. Upon my e xamination, patient in no signs of acute distress resting comfortably on stretcher. Abdominal exam benign nonsurgical abdomen. Rectal exam performed and negative for gross blood, hemorrhoids or anal fissures. Rectal exam chaperoned by Maribel SARMIENTO. Laboratories along with stool occult will be obtained, patient agreeable. Laboratory studies unremarkable for stable hemoglobin of 16.0. No electrolyte abnormality. Lactate 0.9. Urinalysis unremarkable. Stool occult negative. Imaging of abdomen deferred at this time given stable hemoglobin, stool occult negative and no focal abdominal tenderness, patient is agreeable to this. Upon reevaluation patient resting comfortably in exam room no signs of acute distress. Patient educated on today's laboratory findings. Blood possibly due to from straining with defecation given patient reporting recent constipation. Instructed patient to follow-up closely with PCP and GI for further evaluation. GI referral given. Return parameters discussed. Patient discharged in stable condition. Patient verbally expressed understanding agree with care plan. Case discussed with ED attending, Dr. Tafoya. Undiagnosed new problem with uncertain prognosis? @ -No Drug Therapy requiring intensive monitoring for toxicity (Heparin, Nitro, Insul in, Cardizem)? @ -No Were any procedures done? @ -No Diagnosis/symptom? @ -Blood in stool Acute, or Chronic, or Acute on Chronic? @ -Acute Uncomplicated (without systemic symptoms) or Complicated (systemic symptoms)? @ -Uncomplicated Side effects of treatment? @ -No Exacerbation, Progression, or Severe Exacerbation? @ -No Poses a threat to life or bodily function? How? (Chest pain, [place], [place], pneumonia, PE, COPD, DKA, ARF, appy, cholecystitis, CVA, Diverticulitis, Homicidal, Suicidal, threat to staff... and all critical care pts) @ -Low at this time - Lab Data Result diagrams: 06/14/24 11:07 06/14/24 11:07 Lab Results 06/14/24 06/14/24 06/14/24 Range/Units 11:07 11:07 11:07 WBC 4.85 (4.50-10.00) 10*3/uL RBC 5.24 (4.40-5.60) 10*6/uL Hgb 16.0 (13.0-17.0) g/dL Hct 44.3 (39.6-50.0) % MCV 84.5 (80.0-97.0) fL MCH 30.5 (27.0-32.0) pg MCHC 36.1 (32.0-37.0) g/dL Plt Count 291 (140-440) 10*3/uL MPV 8.7 L (9.5-12.2) fL Immature Gran % (Auto) 0.4 % Neutrophils % 54.6 % Lymphocytes % 35.3 % Monocytes % 8.9 % Eosinophils % 0.2 % Basophils % 0.6 % Immature Gran # 0.02 (0.00-0.04) 10*3/uL Neutrophils # 2.65 (1.80-7.70) 10*3/uL Lymphocytes # 1.71 (0.90-5.00) 10*3/uL Monocytes # 0.43 (0.20-1.00) 10*3/uL Eosinophils # 0.01 L (0.04-0.35) 10*3/uL Basophils # 0.03 (0.00-0.10) 10*3/uL Sodium (137-145) mmol/L Potassium (3.5-5.1) mmol/L Chloride (98-107) mmol/L Carbon Dioxide (22-30) mmol/L Anion Gap mmol/L BUN (9-20) mg/dL Creatinine (0.66-1.25) mg/dL Est GFR (CKD-EPI)AfAm (>60 ml/min/1.73 sqM) Est GFR (CKD-EPI)NonAf (>60 ml/min/1.73 sqM) Glucose (74-99) mg/dL Plasma Lactic Acid Telly (0.7-2.0) mmol/L Calcium (8.4-10.2) mg/dL Total Bilirubin (0.2-1.3) mg/dL AST (17-59) U/L ALT (4-49) U/L Alkaline Phosphatase (38-126) U/L Total Protein (6.3-8.2) g/dL Albumin (3.5-5.0) g/dL Lipase (23-300) U/L Urine Color Colorless Urine Appearance Clear (Clear) Urine pH 7.0 (5.0-8.0) Ur Specific [place] 1.003 (1.001-1.035) Urine Protein Negative (Negative) Urine Glucose (UA) Negative (Negative) Urine Ketones Negative (Negative) Urine Blood Negative (Negative) Urine Nitrite Negative (Negative) Urine Bilirubin Negative (Negative) Urine Urobilinogen <2.0 (<2.0) mg/dL Ur Leukocyte Esterase Negative (Negative) Stool Occult Blood Negative (Negative) Blood Type Blood Type Confirm Blood Type Recheck Bld Type Recheck Status Antibody Screen Spec Expiration Date 06/14/24 06/14/24 06/14/24 Range/Units 11:07 11:07 11:07 WBC (4.50-10.00) 10*3/uL RBC (4.40-5.60) 10*6/uL Hgb (13.0-17.0) g/dL Hct (39.6-50.0) % MCV (80.0-97.0) fL MCH (27.0-32.0) pg MCHC (32.0-37.0) g/dL Plt Count (140-440) 10*3/uL MPV (9.5-12.2) fL Immature Gran % (Auto) % Neutrophils % % Lymphocytes % % Monocytes % % Eosinophils % % Basophils % % Immature Gran # (0.00-0.04) 10*3/uL Neutrophils # (1.80-7.70) 10*3/uL Lymphocytes # (0.90-5.00) 10*3/uL Monocytes # (0.20-1.00) 10*3/uL Eosinophils # (0.04-0.35) 10*3/uL Basophils # (0.00-0.10) 10*3/uL Sodium 139 (137-145) mmol/L Potassium 5.0 (3.5-5.1) mmol/L Chloride 104 (98-107) mmol/L Carbon Dioxide 25 (22-30) mmol/L Anion Gap 10 mmol/L BUN 12 (9-20) mg/dL Creatinine 0.97 (0.66-1.25) mg/dL Est GFR (CKD-EPI)AfAm >90 (>60 ml/min/1.73 sqM) Est GFR (CKD-EPI)NonAf >90 (>60 ml/min/1.73 sqM) Glucose 106 H (74-99) mg/dL Plasma Lactic Acid Telly 0.9 (0.7-2.0) mmol/L Calcium 9.7 (8.4-10.2) mg/dL Total Bilirubin 0.5 (0.2-1.3) mg/dL AST 48 (17-59) U/L ALT 88 H (4-49) U/L Alkaline Phosphatase 52 (38-126) U/L Total Protein 7.6 (6.3-8.2) g/dL Albumin 4.7 (3.5-5.0) g/dL Lipase 46 (23-300) U/L Urine Color Urine Appearance (Clear) Urine pH (5.0-8.0) Ur Specific [place] (1.001-1.035) Urine Protein (Negative) Urine Glucose (UA) (Negative) Urine Ketones (Negative) Urine Blood (Negative) Urine Nitrite (Negative) Urine Bilirubin (Negative) Urine Urobilinogen (<2.0) mg/dL Ur Leukocyte Esterase (Negative) Stool Occult Blood (Negative) Blood Type Blood Type Confirm A Positive Blood Type Recheck Bld Type Recheck Status Antibody Screen Spec Expiration Date 06/14/24 Range/Units 12:20 WBC (4.50-10.00) 10*3/uL RBC (4.40-5.60) 10*6/uL Hgb (13.0-17.0) g/dL Hct (39.6-50.0) % MCV (80.0-97.0) fL MCH (27.0-32.0) pg MCHC (32.0-37.0) g/dL Plt Count (140-440) 10*3/uL MPV (9.5-12.2) fL Immature Gran % (Auto) % Neutrophils % % Lymphocytes % % Monocytes % % Eosinophils % % Basophils % % Immature Gran # (0.00-0.04) 10*3/uL Neutrophils # (1.80-7.70) 10*3/uL Lymphocytes # (0.90-5.00) 10*3/uL Monocytes # (0.20-1.00) 10*3/uL Eosinophils # (0.04-0.35) 10*3/uL Basophils # (0.00-0.10) 10*3/uL Sodium (137-145) mmol/L Potassium (3.5-5.1) mmol/L Chloride (98-107) mmol/L Carbon Dioxide (22-30) mmol/L Anion Gap mmol/L BUN (9-20) mg/dL Creatinine (0.66-1.25) mg/dL Est GFR (CKD-EPI)AfAm (>60 ml/min/1.73 sqM) Est GFR (CKD-EPI)NonAf (>60 ml/min/1.73 sqM) Glucose (74-99) mg/dL Plasma Lactic Acid Telly (0.7-2.0) mmol/L Calcium (8.4-10.2) mg/dL Total Bilirubin (0.2-1.3) mg/dL AST (17-59) U/L ALT (4-49) U/L Alkaline Phosphatase (38-126) U/L Total Protein (6.3-8.2) g/dL Albumin (3.5-5.0) g/dL Lipase (23-300) U/L Urine Color Urine Appearance (Clear) Urine pH (5.0-8.0) Ur Specific [place] (1.001-1.035) Urine Protein (Negative) Urine Glucose (UA) (Negative) Urine Ketones (Negative) Urine Blood (Negative) Urine Nitrite (Negative) Urine Bilirubin (Negative) Urine Urobilinogen (<2.0) mg/dL Ur Leukocyte Esterase (Negative) Stool Occult Blood (Negative) Blood Type A Positive Blood Type Confirm Blood Type Recheck No Previous Record Bld Type Recheck Status CABO Indicated Antibody Screen NEGATIVE Spec Expiration Date 06/17/20242314 Disposition Clinical Impression: Blood in stool Disposition: HOME SELF-CARE Condition: Stable Instructions (If sedation given, give patient instructions): Gastrointestinal Bleeding (ED) Additional Instructions: Follow-up with PCP and GI. Return to the ER for any new or worsening concerns. Is patient prescribed a controlled substance at d/c from ED?: No Referrals: Tate Estevez MD [STAFF PHYSICIAN] - 1-2 days Nikole Gautam MD [STAFF PHYSICIAN] - 1-2 days Time of Disposition: 12:34
[2024-06-14 11:12] LABS: Basophils # (A) 0.03 10*3/uL (0.00-0.10); Basophils % (A) 0.6 %; Eosinophils # (A) 0.01 10*3/uL (0.04-0.35); Eosinophils % (A) 0.2 %; HCT 44.3 % (39.6-50.0); Lymphocytes # (A) 1.71 10*3/uL (0.90-5.00); Lymphocytes % (A) 35.3 %; MCH 30.5 pg (27.0-32.0); MCHC 36.1 g/dL (32.0-37.0); MCV 84.5 fL (80.0-97.0); Mean Platelet Volume 8.7 fL (9.5-12.2); Monocytes # (A) 0.43 10*3/uL (0.20-1.00); Monocytes % (A) 8.9 %; Neutrophils # (A) 2.65 10*3/uL (1.80-7.70); Neutrophils % (A) 54.6 %; Platelet Count 291 10*3/uL (140-440); RBC 5.24 10*6/uL (4.40-5.60); RDW 12.3 % (11.5-14.5); WBC 4.85 10*3/uL (4.50-10.00)
[2024-06-14 11:13] LABS: Appearance,Urine Clear (Clear); Bilirubin,Urine Negative (Negative); Blood,Urine Negative (Negative); Color,Urine Colorless; Glucose,Urine (UA) Negative (Negative); Ketones,Urine Negative (Negative); Leukocyte Esterase,Urine Negative (Negative); Nitrite,Urine Negative (Negative); Protein,Urine Negative (Negative); Specific Gravity,Urine 1.003 (1.001-1.035); Urobilinogen,Urine <2.0 mg/dL (<2.0)
[2024-06-14 11:26] LABS: ALT 88 U/L (4-49); AST 48 U/L (17-59); African American GFR (CKD) >90 (>60 ml/min/1.73 sqM); Albumin 4.7 g/dL (3.5-5.0); Alkaline Phosphatase 52 U/L (38-126); Anion Gap 10 mmol/L; Blood Urea Nitrogen 12 mg/dL (9-20); Calcium 9.7 mg/dL (8.4-10.2); Carbon Dioxide 25 mmol/L (22-30); Chloride 104 mmol/L (98-107); Glucose 106 mg/dL (74-99); Lipase 46 U/L (23-300); Non-African American GFR(CKD) >90 (>60 ml/min/1.73 sqM); Sodium 139 mmol/L (137-145); Total Bilirubin 0.5 mg/dL (0.2-1.3); Total Protein 7.6 g/dL (6.3-8.2)
[2024-06-14 13:13] VITALS: BP 131/76; PULSE 68
== END 2024-06-14 13:14 | disposition home or self-care (01) ==
LOC: EC 10:14
DX: K92.1 Melena (principal)
CPT/HCPCS: 36415; 80053; 81003; 82272; 83605; 83690; 85025; 86850; 86900; 86901; 99284